=== PATIENT | female | born 1995 | race African-American/Black ===

== ENCOUNTER 2016-11-17 15:40 | Emergency (ER) | payer BC ==
[~2016-11-17] VITALS: Ht 160 cm; Wt 104.3 kg
[2016-11-17 16:30] LABS: HEMATOCRIT 39.7 % (37.0-47.0); HEMOGLOBIN 13.3 gm/dL (12.0-15.0); MCH 30.5 pg (26.0-34.0); MCHC 33.5 g/dL (28.0-37.0); MCV 91.2 fL (80.0-100.0); PLATELET COUNT 307 thou/uL (150-400); RBC 4.36 mil/uL (4.20-5.00); RDW 14.3 % (10.5-14.5); WBC 12.8 thou/uL (4.0-11.0)
[2016-11-17 16:36] LABS: MANUAL DIFF YES
[2016-11-17 16:41] LABS: CALCIUM 8.5 mg/dL (8.5-10.1); CREATININE 0.8 mg/dL (0.6-1.0); POTASSIUM 3.6 mmol/L (3.5-5.1)
[2016-11-17 16:44] LABS: ALBUMIN 2.7 g/dL (3.4-5.0); TOTAL BILIRUBIN 0.2 mg/dL (<0.1-1.0); TOTAL PROTEIN 6.2 g/dL (6.4-8.2)
[2016-11-17 17:04] LABS: TOTAL CELL COUNT 100
[2016-11-17 17:06] LABS: ABSOLUTE NEUTROPHILS 8.4 thou/uL (1.4-8.2); ATYPICAL LYMPHS 1 %
[2016-11-17 18:12] LABS: URINE BILIRUBIN NEGATIVE (Negative); URINE BLOOD NEGATIVE (Negative); URINE COLOR YELLOW; URINE GLUCOSE-RANDOM* NEGATIVE (Negative); URINE KETONES NEGATIVE (Negative); URINE LEUKOCYTES-REFLEX NEGATIVE (Negative); URINE PROTEIN (DIPSTICK) TRACE (Negative); URINE SPECIFIC GRAVITY 1.015 (1.003-1.035); URINE UROBILINOGEN 0.2 E.U./dl (0.2-1.0)
[2016-11-17] MEDS ORDERED: AUGMENTIN 875875 MG PO (18:12)
[2016-11-17] MEDS ORDERED: MEDROL DOSPAK21 TAB PO (18:38)
[2016-11-17 18:49] VITALS: BP 110/67
== END 2016-11-17 18:49 | disposition home or self-care (01) ==
LOC: ER 15:40
PROVIDERS: Physician Assistant
DX: T36.0X5A Adverse effect of penicillins, initial encounter (principal); B34.9 Viral infection, unspecified; J06.9 Acute upper respiratory infection, unspecified; Y92.89 Other specified places as the place of occurrence of the external cause

== ENCOUNTER → 2018-06-02 | Outpatient (CLI) | payer BC ==
[~2018-06-02] MED LIST: AUGMENTIN 875875 MG PO; MEDROL DOSPAK21 TAB PO
== END ==
LOC: CAT 09:06
DX: J34.1 Cyst and mucocele of nose and nasal sinus (principal); J34.2 Deviated nasal septum